=== PATIENT | female | born 1960 | race Two or more races ===

== ENCOUNTER 2017-07-31 15:55 | Observation (INO) | payer BC, OTHER ==
[~2017-07-31] VITALS: Ht 167.6 cm; Wt 83.0 kg
[2017-07-31 20:03] VITALS: TEMP 98.1
[2017-07-31] MEDS ORDERED: PANTOPRAZOLE IV 80 MG in SOD CHLORIDE 0.9% 100 ML IVPB STA (20:14)
--- NOTE | 2017-07-31 20:17 | ERD ---
ER Documentation Chief Complaint Chief Complaint PT with blood in stool since yesterday, sent by PMD for admission. HPI 57-year-old female with a history of hypertension presenting to the ER complaining of black tarry stools for the past 2 days. She denies any associated abdominal pain, chest pain, shortness of breath, dizziness, nausea, vomiting. No associated fevers or chills. She does endorse chronic headaches and for the past week or so she has been taking high doses of aspirin daily. She was sent here by her primary care doctor for admission for endoscopy. ROS All systems reviewed and are negative except as per history of present illness. Medications Home Meds Reported Medications Albuterol Sulfate* (Proair HFA*) 8.5 Gm Hfa.aer.ad, 2 PUFF INH NEEDED Y for WHEEZING AND SOB, #1 INHALER 07/31/17 Verapamil Hcl* (Verapamil ER*) 120 Mg Cap24h.pel, 120 MG PO DAILY, CAP 07/31/17 Triamterene/Hctz* (Maxzide (37.5-25)*) 1 Each Tablet, 1 EACH PO DAILY, #30 TAB 07/31/17 Allergies Allergies: Coded Allergies: Penicillins (Unverified Allergy, Unknown, 07/31/17) PMhx/Soc History of Surgery: Yes Anesthesia Reaction: No Hx Neurological Disorder: No Hx Respiratory Disorders: No Hx Cardiac Disorders: Yes (HTN) Hx Psychiatric Problems: No Hx Miscellaneous Medical Probl: No Hx Alcohol Use: No Hx Substance Use: No Hx Tobacco Use: No Smoking Status: Never smoker FmHx Family History: No diabetes Physical Exam Vitals Vital Signs Date Time Temp Pulse Resp B/P Pulse Ox O2 Delivery O2 Flow Rate FiO2 07/31/17 20:03 98.1 78 16 159/81 96 Room Air 07/31/17 16:18 98.1 88 16 198/93 96 Physical Exam Const: Well-appearing, very pleasant, no apparent distress, nontoxic Head: Atraumatic Eyes: Normal Conjunctiva ENT: Normal External Ears, Nose and Mouth. Neck: Full range of motion..~ No meningismus. Resp: Clear to auscultation bilaterally Cardio: Regular rate and rhythm, no murmurs. 2+ distal pulses Abd: Soft, non tender, non distended. Normal bowel sounds Skin: No petechiae or rashes Back: No midline or flank tenderness Ext: No cyanosis, or edema Neur: Awake and alert Psych: Normal Mood and Affect Result Diagram: 07/31/17200807/31/172008 Results 24 hrs Laboratory Tests Test 07/31/17 20:09 White Blood Count 8.610^3/ul Red Blood Count 5.1610^6/ul Hemoglobin 14.0g/dl Hematocrit 42.3% Mean Corpuscular Volume 82.0fl Mean Corpuscular Hemoglobin 27.1pg Mean Corpuscular Hemoglobin Concent 33.1g/dl Red Cell Distribution Width 14.9% Platelet Count 32359^3/UL Mean Platelet Volume 10.6fl Neutrophils % 61.3% Lymphocytes % 27.1% Monocytes % 6.8% Eosinophils % 3.5% Basophils % 0.8% Nucleated Red Blood Cells % 0.0/100WBC Neutrophils # 5.310^3/ul Lymphocytes # 2.310^3/ul Monocytes # 0.610^3/ul Eosinophils # 0.310^3/ul Basophils # 0.110^3/ul Nucleated Red Blood Cells # 0.010^3/ul Prothrombin Time 12.4Sec Prothrombin Time Ratio 1.0 INR International Normalized Ratio 0.92 Activated Partial Thromboplast Time 24.3Sec Sodium Level 141mmol/L Potassium Level 3.2mmol/L Chloride Level 101mmol/L Carbon Dioxide Level 26mmol/L Anion Gap 17 Blood Urea Nitrogen 17mg/dl Creatinine 0.66mg/dl Glucose Level 82mg/dl Calcium Level 9.2mg/dl Total Bilirubin 0.0mg/dl Direct Bilirubin 0.00mg/dl Indirect Bilirubin 0.0mg/dl Aspartate Amino Transf (AST/SGOT) 43IU/L Alanine Aminotransferase (ALT/SGPT) 46IU/L Alkaline Phosphatase 75IU/L Total Protein 6.9g/dl Albumin 4.1g/dl Globulin 2.80g/dl Albumin/Globulin Ratio 1.46 Current Medications Medications (Trade) Dose Ordered Sig/Soham Route PRN Reason Start Time Stop Time Status Last Admin Dose Admin Pantoprazole 40 mg 40 mg AC BREAKFAST DINNER PO 08/01/17 07:00 Pantoprazole/ Sodium Chloride (Protonix Iv/NS) 100 ml @ 400 mls/hr ONCE STAT IVPB 07/31/17 20:14 07/31/17 20:28 DC 12/18/17 21:08 Ondansetron HCl (Zofran Inj) 4 mg BRIDGE ORDER PRN IV NAUSEA AND/OR VOMITING 07/31/17 21:00 08/01/17 20:59 07/31/17 21:21 Acetaminophen (Tylenol Tab) 650 mg ER BRIDGE PRN PO MILD PAIN/FEVER 07/31/17 21:00 08/01/17 20:59 Potassium Chloride (Klor-Con 20) 40 meq ONCE STAT PO 07/31/17 21:53 07/31/17 21:54 DC 07/31/17 22:08 Procedures/MDM EMERGENT LABS AND DIAGNOSTIC STUDIES: Lab Results above were reviewed and interpreted by me. CBC is unremarkable CMP is only notable for mild hypokalemia, otherwise normal Coags within normal limits 12-lead EKG was interpreted by Nuvia Cline MD: Normal Sinus Rhythm Incomplete right bundle branch block No acute ST or T wave changes suggestive of acute ischemia or STEMI. Initial Nursing notes reviewed. Previous Medical Records requested via the Electronic Health Record. EMERGENCY DEPARTMENT COURSE / MEDICAL DECISION MAKING: Patient is presenting with signs and symptoms of an upper GI bleed. She is hemodynamically stable without any signs of active bleeding. The patient's physician, Dr. Garcia, who already spoke with a GI physician, Dr. Rose, is on doing an endoscopy tomorrow on the patient. There is no signs of acute surgical abdomen at this time. Patient given 1 dose of IV Protonix in the ED. Departure Diagnosis: Primary Impression: Upper GI bleed Condition: RODRIGO Allan MD Jul 31, 2017 20:17
[2017-07-31 20:20] LABS: BASOPHIL # 0.1 10^3/ul (0.0-0.1); BASOPHILS % 0.8 % (0.0-2.0); EOSINOPHILS # 0.3 10^3/ul (0.0-0.5); EOSINOPHILS % 3.5 % (0.0-7.0); HEMATOCRIT 42.3 % (37.0-47.0); LYMPHOCYTES # 2.3 10^3/ul (0.8-2.9); LYMPHOCYTES % 27.1 % (15.0-51.0); MEAN CORPUSCULAR HEMOGLOBIN 27.1 pg (29.0-33.0); MEAN CORPUSCULAR HGB CONC 33.1 g/dl (32.0-37.0); MEAN PLATELET VOLUME 10.6 fl (7.4-10.4); MONOCYTE # 0.6 10^3/ul (0.3-0.9); MONOCYTES % 6.8 % (0.0-11.0); NEUTROPHIL # 5.3 10^3/ul (1.6-7.5); NEUTROPHILS % 61.3 % (39.0-77.0); PLATELET COUNT 187 10^3/UL (140-415); RED BLOOD COUNT 5.16 10^6/ul (4.20-5.40); RED CELL DISTRIBUTION WIDTH 14.9 % (11.5-14.5); WHITE BLOOD COUNT 8.6 10^3/ul (4.8-10.8)
[2017-07-31] MEDS ORDERED: MAXZ25 PO (20:38)
[2017-07-31] MEDS ORDERED: VERA120C2 PO (20:38)
[2017-07-31] MEDS ORDERED: ALBU8.5H3 INH (20:39)
[2017-07-31 20:45] LABS: ALBUMIN 4.1 g/dl (3.3-4.9); ALBUMIN/GLOBULIN RATIO 1.46; CALCIUM 9.2 mg/dl (8.4-10.2); CREATININE 0.66 mg/dl (0.44-1.00); POTASSIUM 3.2 mmol/L (3.5-5.1); TOTAL PROTEIN 6.9 g/dl (6.1-8.1)
[2017-07-31] MEDS ORDERED: ACETAMINOPHEN 325 MG TAB PO PRN (21:00)
[2017-07-31] MEDS ORDERED: ONDANSETRON 4 MG INJ IV PRN (21:00)
[2017-07-31 21:01] LABS: INR 0.92; PROTIME 12.4 Sec (11.9-14.9)
[2017-07-31 21:02] LABS: PARTIAL THROMBOPLASTIN TIME 24.3 Sec (25.0-35.0)
[2017-07-31] MEDS ORDERED: POTASSIUM CHLORIDE (SR) 20 MEQ TAB PO STA (21:53)
[2017-07-31 23:54] VITALS: BP 158/76; PULSE 65; RESP 18; Ht 167.6 cm; Wt 83.0 kg
--- NOTE | 2017-08-01 06:10 | CONS ---
DATE OF ADMISSION: 07/31/2017 DATE OF CONSULTATION: 07/31/2017 TYPE OF CONSULTATION: Gastroenterology. HISTORY OF PRESENT ILLNESS: Thank you for having me see this patient. As you know, she is a 57-yea r-old woman who I am asked to see regarding gastrointestinal bleeding. Unfortunately, I have seen t he patient in the emergency room waiting room as they did not have a bed available from the patient. Apparently, the patient has noticed passage of a few black stools since yesterday. Because of thi s, she saw her primary physician and did a stool for occult blood and found it to be positive. Yest erday she felt lightheaded at the time she passed black stool, but has not felt that way since. In addition, she had some associated nausea. Of note, she takes aspirin daily. She denies any knowled ge of peptic ulcer disease. She denies any abdominal pain, rectal bleeding, vomiting, change in her bowel pattern or change in her weight. She does have a family history significant for a maternal g randmother and grandfather with colon cancer. Last colonoscopy 8 years ago performed elsewhere is n egative. Of note, her last laboratory data in the computer on her from 06/2006 show a hemoglobin 15 , hematocrit 43 with an MCV of 79. PAST MEDICAL HISTORY: Significant for hospitalizations for childbirth and finger injury. ADULT ILLNESSES: Significant for an episode of diverticulitis, hypertension, asthma and hepatitis C which apparently resolved on its own. There is no history of heart disease, tuberculosis or diabet es. CHILDHOOD: Denies rheumatic fever or scarlet fever. ALLERGIES: PENICILLIN. INJURIES: None. MEDICATIONS: 1. Aspirin. 2. Triamterene/hydrochlorothiazide. 3. Verapamil. 4. Inhaler. 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 She does not smoke or drink alcohol. FAMILY HISTORY: As above, significant for colon cancer. REVIEW OF SYSTEMS: Negative except as noted above. PHYSICAL EXAMINATION: GENERAL: Shows in general, the patient is a well-developed, well-nourished female in no acute distr ess. VITAL SIGNS: Temperature 98.1, pulse 88, respirations 16, blood pressure 198/93. SKIN: Clear. HEENT: Negative. LUNGS: Clear to percussion and auscultation. CARDIAC: No murmurs or gallops. ABDOMEN: Soft, nontender, liver ____. Spleen not palpable. RECTAL: Could not be performed where I saw the patient. LABORATORY DATA: Pending. IMPRESSION: Based on the history of black stool and a Hemoccult positivity, it is most likely the p atient had an upper gastrointestinal bleeding episode. I note her associated nausea which also sugg ests upper gastrointestinal pathology. Given her aspirin intake, I worry about peptic ulcer disease or erosive gastritis. PLAN: 1. I have discussed the above in depth with the patient. 2. Await emergency room evaluation and laboratory data. 3. I have discussed endoscopy in depth with the patient. I have scheduled this tentatively for [facility] tomorrow. I have discussed the risks and alternatives. The patient wishes to proceed. 4. Empiric Protonix ordered. 5. Further recommendations to follow above and clinical course. Thank you for having me see this patient. Dictated By: AUGUST ADAMSON/ANUPAM Conf#: [id number] DID#: [id number]
[2017-08-01] MEDS ORDERED: PANTOPRAZOLE (EC) 40 MG TAB PO SCH (07:00)
[2017-08-01 07:12] LABS: BASOPHILS % 0.5 % (0.0-2.0); EOSINOPHILS # 0.2 10^3/ul (0.0-0.5); EOSINOPHILS % 3.7 % (0.0-7.0); HEMATOCRIT 39.2 % (37.0-47.0); HEMOGLOBIN 12.8 g/dl (12.0-16.0); LYMPHOCYTES # 1.2 10^3/ul (0.8-2.9); LYMPHOCYTES % 19.4 % (15.0-51.0); MEAN CORPUSCULAR HEMOGLOBIN 26.9 pg (29.0-33.0); MEAN CORPUSCULAR HGB CONC 32.7 g/dl (32.0-37.0); MEAN CORPUSCULAR VOLUME 82.4 fl (82.0-101.0); MEAN PLATELET VOLUME 10.5 fl (7.4-10.4); MONOCYTE # 0.5 10^3/ul (0.3-0.9); MONOCYTES % 7.2 % (0.0-11.0); NEUTROPHIL # 4.3 10^3/ul (1.6-7.5); NEUTROPHILS % 68.9 % (39.0-77.0); PLATELET COUNT 186 10^3/UL (140-415); RED BLOOD COUNT 4.76 10^6/ul (4.20-5.40); RED CELL DISTRIBUTION WIDTH 14.8 % (11.5-14.5); WHITE BLOOD COUNT 6.3 10^3/ul (4.8-10.8)
[2017-08-01 08:58] VITALS: BP 131/67; PULSE 69
[2017-08-01] MEDS ORDERED: LIDOCAINE 100 MG SYRINGE ONE (11:54)
[2017-08-01] MEDS ORDERED: PROPOFOL 20 ML ONE (11:54)
--- NOTE | 2017-08-01 12:21 | OPPN ---
Date/Time of Note Date/Time of Note DATE: 08/01/17 TIME: 12:15 Proc Note GI Procedure Date 08/01/17 Indication: diagnostic Pre-procedure Diagnosis GI Bleed Post-procedure Diagnosis Duodenal Ulcer Procedure Performed: Endoscopy Surgeon see signature line Director Commercial Sales none Anesthesia Type: MAC Tourniquet Time none EBL none Transfusion required none Biopsy 1: Gastric Biopsy 2: Possible Barretts Grafts/Implants none Tubes/Drains none Complication(s) none Disposition: PACU Procedure Description After informed consent, the patient was placed in left lateral position and sedated per anesthesia. The Olympus video endoscope was easily passed in patient's esophagus. The instrument advanced to the gastroesophageal junction into the stomach. The pylorus was seen. The duodenal bulb and second portion of the duodenum were examined. Within the distal bulb a 1/2 cm nonbleeding duodenal ulcer was noted. This had a white base with no evidence of any visible vessel. The instrument was removed the patient's stomach which was carefully examined including turnaround procedure. Diffuse gastric erosions were noted. [employer] Driver biopsies were performed. The instrument was then removed through a hiatal hernia. Diaphragmatic pinch was at 40 cm with Z line at 37 cm. There were 2 tongues of gastric tissue extending into the esophagus approximately 1 cm. These were suggestive of Gatica's esophagus. Multiple biopsies were performed. There was no untoward bleeding from any of the biopsy sites. Complications: None Impression: 1. Duodenal ulcer likely source of bleeding-not bleeding currently 2. Gastric erosions -gastric biopsies performed regarding possible Helicobacter pylori 3. 3 cm hiatal hernia 4. Possible Gatica's esophagus-biopsied Plan: 1. As the patient's bleeding has stopped as evidenced by her passing a brown stool, and her current ulcer appears innocuous, she could be discharged and followed as an outpatient 2. Absolutely no aspirin or nonsteroidal products 3. Continue proton pump inhibitor with Protonix 40 mg every morning before breakfast 4. Await biopsy results 5. Advised patient to have elective colonoscopy as outpatient since it has been 8 years since her last examination. AUGUST CAMPBELL MD Aug 01, 2017 12:21
[2017-08-01 12:31] VITALS: BP 127/78; PULSE 70; RESP 14
[2017-08-01 12:36] VITALS: BP 125/75; PULSE 70; RESP 16
[2017-08-01] MEDS ORDERED: FENTAnyl 50 MCG/ML VIAL IV PRN ×3 (13:00)
[2017-08-01] MEDS ORDERED: ALBUTEROL 0.083% (NEB) 2.5 MG/3 ML AMP HHN PRN (13:00)
[2017-08-01] MEDS ORDERED: LABETALOL HCL 20MG INJ IV PRN (13:00)
[2017-08-01] MEDS ORDERED: ONDANSETRON 4 MG INJ IV PRN (13:00)
[2017-08-01] MEDS ORDERED: OXYCODONE/ACETAMINOPHEN (5/325) TAB PO PRN ×2 (13:00)
[2017-08-01] MEDS ORDERED: METOCLOPRAMIDE 10 MG INJ IV PRN (13:00)
[2017-08-01 15:09] VITALS: BP 119/62; PULSE 74
== END 2017-08-01 17:00 | disposition home or self-care (01) ==
LOC: E/R 15:55 → MS3 17:00
DX: K26.9 Duodenal ulcer, unspecified as acute or chronic, without hemorrhage or perforation (principal); K22.70 Barrett's esophagus without dysplasia; K44.9 Diaphragmatic hernia without obstruction or gangrene; I10 Essential (primary) hypertension; J45.909 Unspecified asthma, uncomplicated; Z88.0 Allergy status to penicillin; Z79.82 Long term (current) use of aspirin; E66.9 Obesity, unspecified; Z68.29 Body mass index [BMI] 29.0-29.9, adult; Z91.040 Latex allergy status
CPT/HCPCS: 36415; 80053; 85025; 85610; 85730; 86850; 86900; 86901; 93005; 96374; 96375; C9113; G0378; J2001; J2405